=== PATIENT | female | born 2000 | race Caucasian/White ===

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

== ENCOUNTER 2023-01-21 12:32 | Emergency (ER) | payer OTHER, SELFPAY ==
[2023-01-21 12:32] VITALS: BP 122/77; PULSE 72; RESP 16; TEMP 36.9; O2SAT 100; BMI 24.0
--- NOTE | 2023-01-21 12:43 | CT_ITS ---
STUDY: CT BRAIN WITHOUT CONTRAST REASON FOR EXAM: Female, 22 years old. Head injury due to a fall. RADIATION DOSAGE (If Supplied By Facility): CTDIvol = ( 44.99 ) mGy, DLP = ( 812.98 ) mGycm TECHNIQUE: Transaxial CT imaging of the brain was performed without administration of intravenous contrast material. Individualized dose optimization techniques were used for this CT. COMPARISON: No relevant priors. FINDINGS: Normal soft tissue structures. Normal calvarium. Normal size ventricles and extra-axial spaces for the patient''s age. Normal white matter tracts of the cerebral hemispheres. Normal basal ganglia and thalami. Normal brainstem. Normal cerebellum. There is no intracranial hemorrhage. There are no findings of an acute ischemic infarction. Normal visualized paranasal sinuses. CT/Brain/Head without Contrast IMPRESSION: Normal unenhanced CT scan of the brain. Electronically Signed: Anton Carter MD at 13:17 EDT ,
--- NOTE | 2023-01-21 12:46 | EDS_ITS ---
HPI History of Present Illness Chief Complaint: Head Injury Narrative Narrative: 22-year-old female who denies significant past medical history presents with postconcussive type symptoms from a fall that she experienced this morning at 630. Approximately 6 hours ago, she states she was going down wooden stairs that were slippery while wearing socks. She fell and hit the back of her head twice. She denies any neck pain or loss of consciousness. She does not take blood thinners. However, since her injury this morning, she has had blurry vision and almost blind spots where she looks at the piece of paper with both eyes and it is blank where words are. It is more towards the left. She has vomited 4-5 times without any blood in her emesis. She has a slight headache and is nauseated. She denies any paresthesias, no other injury. Her mother states that while she has had concussions before, her last was a few years ago while playing hockey, but she has never had problems with her vision or was extremely nauseated with vomiting. PFSH PFSH Medical History Dysmenorrhea Generalized anxiety disorder with panic attacks Raynauds phenomenon Warts Home Medications ibuprofen 200 mg tablet 200 mg PO Q6H PRN 01/30/21 [History Last Taken Unknown] melatonin 10 mg capsule 10 mg PO HS PRN 01/30/21 [History Last Taken Unknown] hydroxyzine HCl 25 mg tablet 25 mg PO BID PRN anxiety #60 tabs 02/19/22 [Rx Last Taken Unknown] ondansetron 4 mg disintegrating tablet 4 mg PO Q6H PRN nausea and vomiting #20 tabs 01/21/23 [Rx Last Taken Unknown] Allergy/AdvReac Type Severity Reaction Status Date / Time No Known Allergies Allergy Verified 01/21/23 12:35 Family History Grandmother Anemia Anxiety CVA (cerebral vascular accident) Thyroid disorder Heavy menses Mother Anxiety Arthritis Hypertension Heavy menses Father Anxiety Hyperlipemia Brother Asthma Grandfather Cancer Diabetes Myocardial infarction, Onset Age: 45 Heart disease Melanoma Aunt Osteoporosis Social History Smoking Status: Never smoker alcohol intake: never substance use type: does not use what type of physical activity do you participate in: running and weight training frequency: 5-6 times per week seatbelt use: always do you feel safe at home: Yes ROS ROS ED ROS Narrative Constitutional: No fever, no chills. HEENT: No sore throat. No neck pain. Blurred/blind spot towards left visual field out of both eyes/loss of vision. No rhinorrhea. Cardiovascular: No chest pain. No palpitations. No pedal edema. Respiratory: No cough, no shortness of breath. Abdominal: No abdominal pain. Positive nausea with 5 episodes of nonbloody vomiting. Genitourinary: No dysuria. No hematuria. Musculoskeletal: No myalgias. No arthralgias. Neurologic: Positive headaches. No dizziness. No lightheadedness. Skin: No rash. No change in color. Psychiatric: No depression. No anxiety. EXAM Physical Exam Narrative Exam Narrative: Afebrile. Vital signs noted. HEENT: Normocephalic. Atraumatic. PERRL, EOMI. Neck soft and supple. No point tenderness or step off. No noted hemianopsia and left visual ellis bila terally. Able to finger count. Cardiovascular: Regular rate and rhythm. No murmurs, rubs, or gallops appreciated. Respiratory: No tachypnea. Lungs clear to auscultation bilaterally. Gastrointestinal: Abdomen soft, nontender, with normoactive bowel sounds. No rebound or guarding. Neurological: Awake. Alert. Oriented x3. Nonfocal, nonlateralizing. Patellar DTRs equal and symmetric. Able to raise arms above head without difficulty. Skin: No rash. Normal color. No pallor. Musculoskeletal: No pedal edema. Full range of motion extremities. Const Vital Signs: 01/21/23 12:32 01/21/23 12:54 01/21/23 12:54 Temperature 98.4 F Temperature Source Temporal Pulse Rate 72 Respiratory Rate 16 Respiratory Effort Normal Normal Respiratory Pattern Normal Blood Pressure 122/77 H Blood Pressure Mean 92 Pulse Ox 100 Oxygen Delivery Method Room Air MDM MDM MDM Narrative Medical decision making narrative: Although she has low risk for intracranial hemorrhage, I do feel that CT scanning is indicated given her new reported visual deficit. I reviewed the CT imaging and see no evidence of acute hemorrhage. I reviewed the radiology report and there is no acute process. I am unsure as to why she is having the visual disturbance, but it may have triggered an atypical migraine or be part of her postconcussive syndrome. After Zofran ODT, upon repeat examination, she states that the dot where she was having visual changes has decreased in size. Mildly improved. I discussed patient with Dr. Castillo with ophthalmology, who agrees with outpatient follow-up next week. I do feel she can be discharged safely home to follow-up with ophthalmology. She was instructed on brain rest and will take [id number] analgesics as needed. I do not feel that she requires observation, nor do I feel that she needs narcotic pain medication. Return instructions to the emergency department were reviewed. Disposition is discharged home in stable condition. Radiography Diagnostic Testing: Clinical Impression(s) from Imaging Studies Brain CT 01/21/23 12:43 IMPRESSION: Normal unenhanced CT scan of the brain. Electronically Signed: Anton Carter MD at 13:17 EDT , Discharge Plan Triage Chief Complaint: Head Injury ED Provider: Manuel Faulkner Dx/Rx/DC Orders Clinical Impression: Concussion, Visual disturbance Instructions: ED Concussion, ED Head Injury (Adult) Prescriptions: New ondansetron 4 mg tablet,disintegrating 4 mg PO Q6H PRN (Reason: nausea and vomiting) Qty: 20 0RF No Action ibuprofen 200 mg tablet 200 mg PO Q6H PRN melatonin 10 mg capsule 10 mg PO HS PRN hydroxyzine HCl 25 mg tablet 25 mg PO BID PRN (Reason: anxiety) Qty: 60 1RF Primary Care Provider: Ludwin Vallecillo Referrals: Ludwin Vallecillo MD [Primary Care Provider] - Bolivar Castillo MD [Med Staff - Active Staff] - 3-5 Days Activity Restrictions/Additional Instructions: Perform brain rest. Sit in a cool, dark room with no sensory input such as phone or television, radio. Take [id number] medications as needed for your headache. Disposition Disposition: Home, Self Care
[2023-01-21] MEDS: Ondansetron ODT 4 MG Tablet PO (12:51)
== END 2023-01-21 14:09 | disposition home or self-care (01) ==
PROVIDERS: Emergency Provider Emergency Medicine; PCP Internal Medicine; Visit Provider Emergency Medicine
DX: S06.0X0A Concussion without loss of consciousness, initial encounter (principal); H53.9 Unspecified visual disturbance; W10.9XXA Fall (on) (from) unspecified stairs and steps, initial encounter
CPT/HCPCS: 70450; 99284